=== PATIENT | female | born 1980 | race Hispanic/Latino ===

== ENCOUNTER 2018-08-30 08:51 | Emergency (ER) | payer SELFPAY ==
[2018-08-30] MEDS ORDERED: TORADOL IM ONE (10:12)
[2018-08-30] MEDS ORDERED: ZOFRAN ODT PO ONE (10:12)
--- NOTE | 2018-08-30 10:13 | Emergency Department Report ---
ED Dizziness HPI - General Chief Complaint: Dizziness Stated Complaint: HEADACHE/DIZZINESS/HBP Source: patient Mode of arrival: Ambulatory Limitations: No Limitations - History of Present Illness Initial Comments: This is a 37-year-old -Portuguese female presents with a headache and dizziness that started last night. Patient states she didn't take any medication and went to bed and woke up with similar symptoms. Patient states dizziness is worse with movement. She reports a history of headaches and states symptoms are similar to the past. She is also concern of elevated blood pressure as she does not have a history of such. MD Complaint: dizziness -: This morning Timing: gradual onset Description: lightheadedness History of Same: No History of Trauma: No Severity: moderate Improves With: nothing Worsens With: movement, position Associated Symptoms: other (headache) - Related Data Previous Rx's Medication Instructions Recorded Last Taken Type Butalb/Acetamin/Caff 50-325-40 1 tab PO Q6HR PRN #12 tab 08/30/18 Unknown Rx [Fioricet] Allergies Allergy/AdvReac Type Severity Reaction Status Date / Time No Known Allergies Allergy Unverified 08/30/18 08:52 ED Review of Systems ROS: Stated complaint: HEADACHE/DIZZINESS/HBP Other details as noted in HPI Constitutional: denies: chills, fever Respiratory: denies: cough, shortness of breath, wheezing Cardiovascular: denies: chest pain, palpitations Gastrointestinal: denies: abdominal pain, nausea, diarrhea Skin: denies: rash, lesions Neurological: headache. denies: weakness, paresthesias Psychiatric: denies: anxiety, depression ED Past Medical Hx - Past Medical History Previous Medical History?: No - Surgical History Past Surgical History?: No - Social History Smoking Status: Never Smoker Substance Use Type: Marijuana - Medications Home Medications: Home Medications Medication Instructions Recorded Confirmed Last Taken Type Butalb/Acetamin/Caff 50-325-40 1 tab PO Q6HR PRN #12 tab 08/30/18 Unknown Rx [Fioricet] ED Physical Exam - General Limitations: No Limitations General appearance: alert, in no apparent distress, obese - ENT ENT exam: Present: mucous membranes moist - Respiratory Respiratory exam: Present: normal lung sounds bilaterally. Absent: respiratory distress - Cardiovascular Cardiovascular Exam: Present: regular rate, normal rhythm. Absent: systolic murmur, diastolic murmur, rubs, gallop - GI/Abdominal GI/Abdominal exam: Present: soft, normal bowel sounds - Neurological Exam Neurological exam: Present: alert, oriented X3 - Psychiatric Psychiatric exam: Present: normal affect, normal mood - Skin Skin exam: Present: warm, dry, intact, normal color. Absent: rash ED Course Vital Signs 08/30/18 08/30/18 09:32 11:37 Temperature 97.8 F 98.2 F Pulse Rate 85 65 Respiratory 20 16 Rate Blood Pressure 160/110 148/93 O2 Sat by Pulse 100 98 Oximetry ED Medical Decision Making - Lab Data Result diagrams: 08/30/18 10:23 08/30/18 10:23 Lab Results 08/30/18 08/30/18 Range/Units 10:23 10:23 WBC 5.4 (4.5-11.0) K/mm3 RBC 4.28 (3.65-5.03) M/mm3 Hgb 11.7 (10.1-14.3) gm/dl Hct 34.1 (30.3-42.9) % MCV 80 (79-97) fl MCH 27 L (28-32) pg MCHC 34 (30-34) % RDW 15.0 (13.2-15.2) % Plt Count 231 (140-440) K/mm3 Sodium 141 (137-145) mmol/L Potassium 3.9 (3.6-5.0) mmol/L Chloride 105.3 (98-107) mmol/L Carbon Dioxide 26 (22-30) mmol/L Anion Gap 14 mmol/L BUN 7 (7-17) mg/dL Creatinine 0.6 L (0.7-1.2) mg/dL Estimated GFR > 60 ml/min BUN/Creatinine Ratio 12 % Glucose 84 (65-100) mg/dL Calcium 9.0 (8.4-10.2) mg/dL - Medical Decision Making This is a 37 y.o. female that presents with headache for 2 days. History of migraines. Patient is stable and was examined by me. No signs of distress noted. Given toradol and zofran once in ER. Obtained BMP & CBC, both unremarkable. Reports feeling better. Start fiorcet for migraines. No further questions noted by the patient. Discharged home in stable condition. Follow up w ith PCP in 24-72 hours. Critical care attestation.: If time is entered above; I have spent that time in minutes in the direct care of this critically ill patient, excluding procedure time. ED Disposition Clinical Impression: Vertigo, Elevated blood pressure reading Migraine Qualifiers: Migraine type: without aura Status migrainosus presence: with status migrainosus Intractability: not intractable Qualified Code(s): G43.001 - Migraine without aura, not intractable, with status migrainosus Disposition: TO HOME OR SELFCARE Is pt being admited?: No Does the pt Need Aspirin: No Condition: Stable Instructions: Migraine Headache (ED), Vertigo (ED), Hypertension (ED) Additional Instructions: Take medication at start of headache. Moderate caffeine intake. Eat at scheduled times or 3 meals a day with snacks. Moderate caffeine consumption is acceptable. Begin and maintain aerobic exercise, with a goal of at least 30 minutes of moderate intensity, dynamic aerobic exercise (walking, jogging, cycling, or swimming) 5 days per week to total 150 minutes as tolerated or recommended by a physician. Keep a blood pressure log for 1 week and follow up with a primary care physician. Follow up with primary care provider in 24-72 hours. Prescriptions: Butalb/Acetamin/Caff 50-325-40 [Fioricet] 1 tab PO Q6HR PRN #12 tab PRN Reason: Headache Referrals: MESFIN LOTT MD [Primary Care Provider] - 3-5 Days [facility] [Outside] - 3-5 Days [facility] [Outside] - 3-5 Days Forms: Work/School Release Form(ED) Time of Disposition: 11:18
[2018-08-30 10:41] LABS: Hematocrit 34.1 % (30.3-42.9); Hemoglobin 11.7 gm/dl (10.1-14.3); Mean Corpuscular HGB Conc 34 % (30-34); Mean Corpuscular Volume 80 fl (79-97); Platelet Count 231 K/mm3 (140-440); Red Blood Count 4.28 M/mm3 (3.65-5.03)
[2018-08-30 10:56] LABS: BUN/Creatinine Ratio 12; Blood Urea Nitrogen 7 mg/dL (7-17); Hemolysis Index 5
[2018-08-30 11:43] VITALS: BP 148/93
== END 2018-08-30 11:57 | disposition home or self-care (01) ==
LOC: ED 08:51
DX: G43.909 Migraine, unspecified, not intractable, without status migrainosus (principal); R03.0 Elevated blood-pressure reading, without diagnosis of hypertension; F12.10 Cannabis abuse, uncomplicated
CPT/HCPCS: 36415; 80048; 85027; 96372; 99283; J1885; Q0162

== ENCOUNTER 2021-12-28 15:12 | Emergency (ER) | payer OTHER ==
--- NOTE | 2021-12-28 16:54 | XRay Report ---
CHEST 2 VIEWS INDICATION: cough, gloria. COMPARISON: None. FINDINGS: Support devices: None. Heart: Within normal limits. Lungs/Pleura: No acute air space or interstitial disease. No significant pleural effusion. IMPRESSION: No acute findings. Signer Name: Glenn Anderson MD Signed: 12/28/2021 4:50 PM Workstation Name: [id number]
--- NOTE | 2021-12-28 18:38 | Emergency Department Report ---
- General Chief Complaint: Upper Respiratory Infection Stated Complaint: COVID SYM/CHEST PAIN/SORE THROAT Source: patient Mode of arrival: Ambulatory Limitations: No Limitations - History of Present Illness Initial Comments: 41-year-old female presents to the ED complaining of cough. sinus pressure, runny nose x2 weeks. Patient was complaint seen at [facility] and was given Tessalon Perle for cough and was told she had viral sinusitis. Patient states no improvement. Patient denies any chest pain shortness of breath. Patient is alert and oriented x3. No acute distress noted. No ill appearance noted. Patient states that she is supposed to be take taking blood pressure medication but she is noncompliant. Patient states taking [id number] NyQuil with mild relief. MD Complaint: cough, sore throat, rhinorrhea, sinus pain Onset/Timin -: week(s) Severity: moderate Severity scale (0 -10): 5 Quality: aching Consistency: intermittent Improves With: nothing Worsens With: nothing Associated Symptoms: denies other symptoms - Related Data Previous Rx's Medication Instructions Recorded Last Taken Type Butalb/Acetamin/Caff 50-325-40 1 tab PO Q6HR PRN #12 tab 08/30/18 Unknown Rx [Fioricet] Amoxicillin/K Clav Tab [Augmentin 1 tab PO Q12HR 10 Days #20 tab 12/28/21 Unknown Rx 875 mg] Cetirizine HCl/Pseudoephedrine 1 each PO BID 15 Days #30 tab 12/28/21 Unknown Rx [Zyrtec-D Tablet] predniSONE [Deltasone] 50 mg PO QDAY 5 Days #5 tab 12/28/21 Unknown Rx Allergies Allergy/AdvReac Type Severity Reaction Status Date / Time No Known Allergies Allergy Unverified 08/30/18 08:52 ED Review of Systems ROS: Stated complaint: COVID SYM/CHEST PAIN/SORE THROAT Other details as noted in HPI Constitutional: denies: chills, fever Eyes: denies: eye pain, eye discharge, vision change ENT: denies: ear pain, throat pain Respiratory: denies: cough, shortness of breath, wheezing Cardiovascular: denies: chest pain, palpitations Endocrine: no symptoms reported Gastrointestinal: denies: abdominal pain, nausea, diarrhea Genitourinary: denies: urgency, dysuria, discharge Musculoskeletal: denies: back pain, joint swelling, arthralgia Skin: denies: rash, lesions Neurological: denies: headache, weakness, paresthesias Psychiatric: denies: anxiety, depression Hematological/Lymphatic: denies: easy bleeding, easy bruising ED Past Medical Hx - Past Medical History Previous Medical History?: No - Social History Smoking Status: Never Smoker Substance Use Type: Marijuana - Medications Home Medications: Home Medications Medication Instructions Recorded Confirmed Last Taken Type Butalb/Acetamin/Caff 50-325-40 1 tab PO Q6HR PRN #12 tab 08/30/18 Unknown Rx [Fioricet] Amoxicillin/K Clav Tab [Augmentin 1 tab PO Q12HR 10 Days #20 tab 12/28/21 Unknown Rx 875 mg] Cetirizine HCl/Pseudoephedrine 1 each PO BID 15 Days #30 tab 12/28/21 Unknown Rx [Zyrtec-D Tablet] predniSONE [Deltasone] 50 mg PO QDAY 5 Days #5 tab 12/28/21 Unknown Rx ED Physical Exam - General Limitations: No Limitations General appearance: alert, in no apparent distress - Head Head exam: Present: atraumatic, normocephalic - Eye Eye exam: Present: normal appearance - ENT ENT exam: Present: mucous membranes moist - Neck Neck exam: Present: normal inspection - Respiratory Respiratory exam: Present: normal lung sounds bilaterally. Absent: respiratory distress - Cardiovascular Cardiovascular Exam: Present: regular rate, normal rhythm. Absent: systolic murmur, diastolic murmur, rubs, gallop - GI/Abdominal GI/Abdominal exam: Present: soft, normal bowel sounds - Extremities Exam Extremities exam: Present: normal inspection - Back Exam Back exam: Present: normal inspection - Neurological Exam Neurological exam: Present: alert, oriented X3 - Psychiatric Psychiatric exam: Present: normal affect, normal mood - Skin Skin exam: Present: warm, dry, intact, normal color. Absent: rash ED Course Vital Signs 12/28/21 12/28/21 16:12 19:13 Temperature 98.6 F Pulse Rate 104 H 87 Respiratory 18 14 Rate Blood Pressure 154/110 142/96 [Left] O2 Sat by Pulse 96 100 Oximetry ED Medical Decision Making - Medical Decision Making 41-year-old female presents to the ED complaining of cough. sinus pressure, runny nose x2 weeks. Patient was complaint seen at [facility] and was given Tessalon Perle for cough and was told she had viral sinusitis. Patient states no improvement. Patient denies any chest pain shortness of breath. Patient is alert and oriented x3. No acute distress noted. No ill appearance noted. Patient states that she is supposed to be take taking blood pressure medication but she is noncompliant. Patient states taking [id number] NyQuil with mild relief. Rechecked the patient is resting quietly , comfortable and feeling better. I discussed the results of diagnostic study, my clinical impression and the plan for further treatment with the patient. Patient agrees with plan and discharge at this present time. All question addressed. I have given the patient instruction regarding a diagnosis ,expectation ,follow- up and return precaution. I explained to the patient that emergent condition may arise and to return to the ED for new worsen and any new persisting condition. I have explained the importance of following up with the primary care physician or referral physician listed below has instructed. The patient verbalized understanding of discharge instruction. Critical care attestation.: If time is entered above; I have spent that time in minutes in the direct care of this critically ill patient, excluding procedure time. ED Disposition Clinical Impression: Acute sinus infection Qualifiers: Sinusitis location: frontal Recurrence: non-recurrent Qualified Code(s): J01.10 - Acute frontal sinusitis, unspecified Hypertension Qualifiers: Hypertension type: primary hypertension Qualified Code(s): I10 - Essential (primary) hypertension Disposition: 01 HOME / SELF CARE / HOMELESS Is pt being admited?: No Does the pt Need Aspirin: No Condition: Stable Instructions: Sinusitis, Adult, [id number], How to Perform a Sinus Rinse, [id number], Hypertension (ED) Additional Instructions: Take medication as prescribed Continue to take Tessalon Perle has proven prescribed Prescriptions: Amoxicillin/K Clav Tab [Augmentin 875 mg] 1 tab PO Q12HR 10 Days #20 tab predniSONE [Deltasone] 50 mg PO QDAY 5 Days #5 tab Cetirizine HCl/Pseudoephedrine [Zyrtec-D Tablet] 1 each PO BID 15 Days #30 tab Referrals: ANTONIO JOHNSON MD [Staff Physician] - 3-5 Days Forms: Work/School Release Form(ED) Time of Disposition: 18:53
[2021-12-28 19:16] VITALS: BP 142/96
== END 2021-12-28 19:53 | disposition home or self-care (01) ==
LOC: ED 15:12
DX: J01.90 Acute sinusitis, unspecified (principal); I10 Essential (primary) hypertension; F12.90 Cannabis use, unspecified, uncomplicated
CPT/HCPCS: 71046; 99283